=== PATIENT | female | born 2000 | race Caucasian/White ===

== ENCOUNTER 2019-07-22 07:50 | Emergency (ER) | payer SELFPAY ==
[~2019-07-22] VITALS: Ht 149.9 cm; Wt 62.0 kg
[2019-07-22] MEDS ORDERED: DEXAMETHASONE 4MG TABLET PO ONE (08:45)
[2019-07-22] MEDS ORDERED: IPRATROPIUM/ALBUTEROL 0.5-3(2.5)MG/3ML NEB HHN ONE (08:45)
[2019-07-22 10:03] VITALS: BP 115/73
== END 2019-07-22 10:09 | disposition home or self-care (01) ==
LOC: ER 07:50
DX: J45.901 Unspecified asthma with (acute) exacerbation (principal); R09.82 Postnasal drip; J34.89 Other specified disorders of nose and nasal sinuses; F17.200 Nicotine dependence, unspecified, uncomplicated; F12.10 Cannabis abuse, uncomplicated; Z88.6 Allergy status to analgesic agent; Z91.040 Latex allergy status
CPT/HCPCS: 99283; J7620; J8540